=== PATIENT | male | born 1945 | race Caucasian/White ===

== ENCOUNTER 2017-03-30 15:46 | Emergency (ER) | payer MEDICARE, BC ==
[~2017-03-30] VITALS: Ht 182.9 cm; Wt 150.0 kg
[2017-03-30 16:25] LABS: HEMATOCRIT 49.9 % (39.2-51.8); HEMOGLOBIN 16.6 g/dL (13.7-18.0); WHITE BLOOD COUNT 14.4 x10^3/uL (3.4-10)
[2017-03-30 16:38] LABS: BLOOD UREA NITROGEN 15 mg/dL (7-18)
[2017-03-30 16:47] LABS: IS PT STATUS REG ER OR PRE ER? YES
[2017-03-30 17:20] VITALS: BP 112/71
== END 2017-03-30 17:35 | disposition home or self-care (01) ==
LOC: ED 17:20
DX: R07.89 Other chest pain (principal); I25.10 Atherosclerotic heart disease of native coronary artery without angina pectoris; Z88.0 Allergy status to penicillin
CPT/HCPCS: 36415; 71010; 80048; 82040; 84484; 85025; 93005; 99285

== ENCOUNTER 2018-01-27 00:24 | Observation (INO) | payer MEDICARE, BC ==
[~2018-01-27] VITALS: Ht 182.9 cm; Wt 138.9 kg
[2018-01-27] MEDS ORDERED: LOVA40TA2 PO (00:51)
[2018-01-27] MEDS ORDERED: TAMS-11 PO (00:51)
[2018-01-27] MEDS ORDERED: RAMI5CAP PO (00:51)
[2018-01-27] MEDS ORDERED: METF500T4 PO (00:51)
[2018-01-27] MEDS ORDERED: FENO145T32 PO (00:51)
[2018-01-27] MEDS ORDERED: METO25TA35 PO (00:51)
[2018-01-27] MEDS ORDERED: RABE20TA26 PO (00:51)
[2018-01-27 01:13] LABS: BASOPHILS % (AUTO) 2 % (0-1); EOSINOPHILS % (AUTO) 1 % (1-7); LYMPHOCYTES # (AUTO) 3.07 x10^3/uL (1-3.4); LYMPHOCYTES % (AUTO) 25 % (22-44); MD NO; MEAN CORPUSCULAR HEMOGLOBIN 29.3 pg (27.5-34.5); MEAN CORPUSCULAR HGB CONC 33.9 g/dL (33.2-36.2); MEAN CORPUSCULAR VOLUME 86.2 fL (81-97); MEAN PLATELET VOLUME 8.4 fL (7.4-10.4); MONOCYTES # (AUTO) 0.85 x10^3/uL (0.2-0.8); MONOCYTES % (AUTO) 7 % (2-9); NEUTROPHILS # (AUTO) 7.91 x10^3/uL (1.8-6.8); NEUTROPHILS % (AUTO) 65 % (42-75); PLATELET COUNT 318 x10^3/uL (130-400); RED BLOOD COUNT 5.27 x10^6/uL (4.38-5.82); RED CELL DISTRIBUTION WIDTH 16.1 % (9.4-14.8)
[2018-01-27 01:25] LABS: ALANINE AMINOTRANSFERASE 23 U/L (12-78); ALBUMIN 3.1 g/dL (3.4-5.0); ANION GAP 6 mmol/L (5-15); CALCIUM 8.8 mg/dL (8.5-10.1); CHLORIDE 111 mmol/L (98-107); CREATININE 0.84 mg/dL (0.7-1.3)
[2018-01-27 01:29] LABS: ALKALINE PHOSPHATASE 54 U/L (45-117); BILIRUBIN,TOTAL 0.3 mg/dL (0.2-1.0); TOTAL PROTEIN 6.7 g/dL (6.4-8.2); TROPONIN I < 0.015 ng/mL (0.000-0.045)
[2018-01-27] MEDS ORDERED: morphine SULFATE 10 MG/ML, 1ML IVPush PRN (04:00)
[2018-01-27] MEDS ORDERED: hydrALAzine 20 MG/ML, 1ML IVPush PRN (04:00)
[2018-01-27] MEDS ORDERED: ONDANSETRON 2MG/ML, 2ML IVPush PRN (04:00)
[2018-01-27] MEDS ORDERED: TRAZODONE 50MG TABLET PO PRN (04:00)
[2018-01-27] MEDS ORDERED: ONDANSETRON ODT 4 MG PO PRN (04:00)
[2018-01-27] MEDS ORDERED: ACETAMINOPHEN 325 MG TABLET PO PRN (04:00)
[2018-01-27] MEDS ORDERED: NITROGLYCERIN 0.4 MG BOTTLE (25 TABS) SL PRN (04:00)
[2018-01-27] MEDS ORDERED: DOCUSATE 100 MG CAPSULE PO PRN (04:00)
[2018-01-27 04:30] LABS: BASOPHILS # (AUTO) 0.05 x10^3/uL (0-0.1); BASOPHILS % (AUTO) 1 % (0-1); EOSINOPHILS # (AUTO) 0.09 x10^3/uL (0-0.4); EOSINOPHILS % (AUTO) 1 % (1-7); LYMPHOCYTES # (AUTO) 3.15 x10^3/uL (1-3.4); LYMPHOCYTES % (AUTO) 29 % (22-44); MD NO; MEAN CORPUSCULAR HEMOGLOBIN 29.1 pg (27.5-34.5); MEAN CORPUSCULAR HGB CONC 33.5 g/dL (33.2-36.2); MEAN CORPUSCULAR VOLUME 86.7 fL (81-97); MEAN PLATELET VOLUME 8.4 fL (7.4-10.4); MONOCYTES % (AUTO) 8 % (2-9); NEUTROPHILS # (AUTO) 6.73 x10^3/uL (1.8-6.8); NEUTROPHILS % (AUTO) 62 % (42-75); PLATELET COUNT 317 x10^3/uL (130-400); RED BLOOD COUNT 5.41 x10^6/uL (4.38-5.82)
[2018-01-27 04:44] LABS: HEMOGLOBIN A1C 6.6 % (4.2-6.3)
[2018-01-27 04:50] LABS: CHOL/HDL RATIO 3.3; CHOLESTEROL, TOTAL 116 mg/dL (140-239); HDL CHOL % 30 % (26-37); HDL CHOLESTEROL (DIRECT) 35 mg/dL (40-60); LDL CHOLESTEROL,CALCULATED 47 mg/dL (54-169); LDL/HDL RATIO 1.3 (0.5-3.0); TRIGLYCERIDES 168 mg/dL (50-200); TROPONIN I < 0.015 ng/mL (0.000-0.045); VLDL CHOLESTEROL 34 mg/dL (0-25)
[2018-01-27 05:37] VITALS: BP 137/76
[2018-01-27] MEDS ORDERED: ASPIRIN 325 MG TABLET EC PO SCH (06:00)
[2018-01-27 07:00] VITALS: BP 108/67
[2018-01-27] MEDS ORDERED: PANTOPROZOLE 40MG TABLET PO SCH (07:30)
[2018-01-27] MEDS ORDERED: REGADENOSON 0.4 MG/5 ML SYRINGE ONE (08:27)
[2018-01-27] MEDS ORDERED: TAMSULOSIN 0.4 MG CAP.ER.24H PO SCH (09:00)
[2018-01-27] MEDS ORDERED: METOPROLOL TARTRATE 25 MG TABLET PO SCH (09:00)
[2018-01-27] MEDS ORDERED: RAMIPRIL 2.5 MG CAPSULE PO SCH (09:00)
[2018-01-27 12:33] LABS: TROPONIN I < 0.015 ng/mL (0.000-0.045)
[2018-01-27 13:20] VITALS: BP 102/64
[2018-01-27] MEDS ORDERED: LOVASTATIN 40 MG TABLET PO SCH (21:00)
[2018-01-27] MEDS ORDERED: FENOFIBRATE 145 MG TABLET PO SCH (21:00)
== END 2018-01-27 17:50 | disposition home or self-care (01) ==
LOC: ED 02:59 → EDIP 03:44 → 5SO 04:05
PROVIDERS: ADMIT Internal Medicine; ATTEND Internal Medicine
DX: I25.119 Atherosclerotic heart disease of native coronary artery with unspecified angina pectoris (principal); E78.5 Hyperlipidemia, unspecified; E78.1 Pure hyperglyceridemia; E11.9 Type 2 diabetes mellitus without complications; I10 Essential (primary) hypertension; I27.21 Secondary pulmonary arterial hypertension; K21.9 Gastro-esophageal reflux disease without esophagitis; N40.0 Benign prostatic hyperplasia without lower urinary tract symptoms; D72.829 Elevated white blood cell count, unspecified; K59.00 Constipation, unspecified; E66.01 Morbid (severe) obesity due to excess calories; Z79.82 Long term (current) use of aspirin; Z87.891 Personal history of nicotine dependence; Z95.5 Presence of coronary angioplasty implant and graft
CPT/HCPCS: 36415; 71045; 78452; 80053; 80061; 83036; 84484; 85025; 93005; 93017; 93306; 99285; A9502; C9898; G0378; J2785

== ENCOUNTER → 2019-08-26 | Outpatient (CLI) | payer MEDICARE, BC ==
[~2019-08-26] MED LIST: FENO145T32 PO; LOVA40TA2 PO; METF500T17 PO; METO25TA35 PO; RABE20TA26 PO; RAMI5CAP57 PO; TAMS-11 PO
== END | disposition home or self-care (01) ==
LOC: CVU 14:02
PROVIDERS: ATTEND Physician Assistant Medical
DX: I65.23 Occlusion and stenosis of bilateral carotid arteries (principal); R09.89 Other specified symptoms and signs involving the circulatory and respiratory systems; I10 Essential (primary) hypertension; E11.9 Type 2 diabetes mellitus without complications; E78.5 Hyperlipidemia, unspecified; I25.10 Atherosclerotic heart disease of native coronary artery without angina pectoris
CPT/HCPCS: 93880

== ENCOUNTER 2021-03-25 11:01 | Emergency (ER) | payer MEDICARE, BC ==
[~2021-03-25] VITALS: Ht 182.9 cm; Wt 127.6 kg
[~2021-03-25 11:01] MED LIST changes: -RABE20TA26 PO; +RABE20TA29 PO
[2021-03-25] MEDS ORDERED: NALOXONE 0.4 MG/ML, 1ML ONE (11:05)
[2021-03-25 11:13] VITALS: BP 133/57
--- NOTE | 2021-03-25 11:40 | NUR ---
CLOTH OPENER HAND: PT TO ROOM FROM LOBBY
[2021-03-25] MEDS ORDERED: FLUORESCEIN OPHTHALMIC 1 MG STRIP ONE (12:30)
--- NOTE | 2021-03-25 12:45 | NUR ---
LATE ENTRY FOR 1200, PT INSTRUCTED ON USE OF WET COLD COMPRESS TO RIGHT EYE FOR PAIN RELIEF. ICE WATER AND GAUZE AT BEDSIDE. COOL COMPRESS APPLIED, PT TOLLERATING WELL.
--- NOTE | 2021-03-25 13:16 | NUR ---
Patient/Caregiver given discharge instructions and they have confirmed that they understand the instructions. Patient ambulatory with steady gait. NAD, all questions answered appropriately, denies additional needs at this time. No personal belongings left in room after discharge.
--- NOTE | 2021-03-25 13:26 | NUR ---
DR LANDEROS AT BEDSIDE, NEW ORDER FOR TETANUS REC'D. VACCINE GIVEN NOTED.
[2021-03-25] MEDS ORDERED: DIPH,PERTUSS(ACELL),TET VAC/PF 0.5 ML IM-VACC ONE (13:30)
== END 2021-03-25 13:35 | disposition home or self-care (01) ==
LOC: ED 13:15
DX: S05.01XA Injury of conjunctiva and corneal abrasion without foreign body, right eye, initial encounter (principal); I10 Essential (primary) hypertension; E11.9 Type 2 diabetes mellitus without complications; I25.10 Atherosclerotic heart disease of native coronary artery without angina pectoris; X58.XXXA Exposure to other specified factors, initial encounter; Y93.89 Activity, other specified; Y92.89 Other specified places as the place of occurrence of the external cause; Y99.8 Other external cause status
CPT/HCPCS: 90471; 90715